=== PATIENT | female | born 1955 | race Two or more races ===

== ENCOUNTER → 2018-02-16 | Outpatient (CLI) | payer SELFPAY ==
--- NOTE | 2018-02-16 11:00 | RAD ---
CHEST PA LATERAL History: TB TEST. Comparison: None. Heart size: Upper limits but not grossly enlarged. Jennifer/mediastinum: Within normal limits Lungs: No focal airspace consolidation. Pleura: No evidence of pleural effusion. Pneumothorax: None visualized Bones: Degenerative spondylosis. There are surgical changes at the partially seen lumbar spine. Miscellaneous: None Impression: No acute radiographic findings. Electronically signed by: Cory Hoover MD (02/16/2018 10:56 AM) [id number]
== END | disposition home or self-care (01) ==
LOC: RAD 10:19
PROVIDERS: ATTEND Internal Medicine
DX: Z11.1 Encounter for screening for respiratory tuberculosis (principal); M47.894 Other spondylosis, thoracic region
CPT/HCPCS: 71046